=== PATIENT | male | born 1970 | race African-American/Black ===

== ENCOUNTER 2016-09-22 07:05 | Emergency (ER) | payer SELFPAY ==
[2016-09-22] MEDS ORDERED: Sodium Chloride 0.9% 2.5 ML Syringe FLUSH PRN (07:29)
[2016-09-22] MEDS ORDERED: Sodium Chloride 0.9% 10 ML Syringe FLUSH PRN (07:29)
--- NOTE | 2016-09-22 07:38 | EDM.PDOC ---
ED HPI GENERAL MEDICAL PROBLEM - General Chief Complaint: Genitourinary Problem Stated Complaint: PT CAN'T URINATE Time Seen by Provider: 09/22/16 07:15 - History of Present Illness INITIAL COMMENTS - FREE TEXT/NARRATIVE: HISTORY AND PHYSICAL: History of present illness: The patient is a 46-year-old male with no stated medical problems who presents with complaints of pressure with urination and difficulty initiating a stream that started last evening. According to the patient has had no issues with urination in the past and has no STD risks as he has only 1 partner and has not had sexual intercourse for over 3 weeks. He has no testicular pain or swelling no abdominal pain no nausea no vomiting no fever and no flank pain. Has no history of kidney stones. The patient states that yesterday he had urine output that was normal in color and had no issues with passing the urine during the day but then last evening started having dark colored urine which looked bloody to him and difficulty passing the urine and pressure with it. He says it doesn' t burn or hurt to pass the urine there is just pressure in his pelvis. He also states that he does not feel like there is urine trapped in his bladder that he cannot get out. He has no rectal pain and no bowel movement issues. He says he hydrates. The patient lives in [place] and is here working and does not have a provider at home or here. He has no history of trauma. Patient says he took Aleve last Sunday, 6 days ago, for a toothache which he normally doesn't take any was concerned that might have caused the problem. He also takes an herbal supplement for the last 6 days it was recommended to him by a coworker for his toothache but this again is a new medication for him. The patient states that he voided in the ER waiting area right before coming in and was able to produce a small sample for us of 10 mL of urine looked very dark colored. Review of systems: As per history of present illness and below otherwise all systems reviewed and negative. Past medical history: As per history of present illness and as reviewed below otherwise noncontributory. Surgical history: As per history of present illness and as reviewed below otherwise noncontributory. Social history: No reported history of drug or alcohol abuse. Family history: As per history of present illness and as reviewed below otherwise noncontributory. Physical exam: Gen.: Well-developed well-nourished male who is nontoxic and speaking clearly and moves in the ED without distress. Vital signs been noted by me. HEENT: Atraumatic, normocephalic, pupils reactive, negative for conjunctival pallor or scleral icterus, mucous membranes moist, throat clear, neck supple, nontender, trachea midline. Lungs: Clear to auscultation, breath sounds equal bilaterally, chest nontender. Heart: S1S2, regular and rhythm no overt murmurs Abdomen: Soft, nondistended, nontender. Negative for masses or hepatosplenomegaly. Negative for costovertebral tenderness. Pelvis: Stable nontender. Genitourinary: Normal male with descended testicles bilaterally no evidence of any masses or lesions no inguinal adenopathy Rectal: There is a small excoriated hemorrhoid seen and there is normal rectal tone. The prostate is not enlarged or boggy Extremities: Atraumatic, negative for cords or calf pain. Neurovascular unremarkable. Neuro: Awake, alert, oriented. Cranial nerves II through XII unremarkable. Cerebellum unremarkable. Motor and sensory unremarkable throughout. Exam nonfocal. Diagnostics: UA urine culture urine for gonorrhea and Chlamydia, bladder scan, CBC CMP CPK CT scan of the abdomen and pelvis As the patient voided in the ED waiting area as well as a small amount here in the ER for sample the bladder scan will be a post void residual Therapeutics: IV fluids Patient's post void residual on bladder scan was 412 mL 1032: Case was discussed with Dr. Quiñones ; he is going to review the CT scan and calm and discussed the plan with the patient. Patient is aware of this and is comfortable with this. He currently has been passing urine in the ED which is looking more bloody and less dark 1100: Dr Quiñones is here in the ED and will schedule the patient for cystoscopy on Sunday. Patient is aware that he needs to hydrate and that he is unable to pass urine that he should return to the ED. Impression: Hematuria likely bladder tumor Definitive disposition and diagnosis as appropriate pending reevaluation and review of above. - Related Data Allergies Allergy/AdvReac Type Severity Reaction Status Date / Time No Known Allergies Allergy Verified 09/22/16 07:17 Home Meds: Home Meds . [No Known Home Meds] 09/22/16 [History] Past Medical History - Past Health History Medical/Surgical History: Denies Medical/Surgical History Social & Family History - Family History Family Medical History: Noncontributory - Tobacco Use Smoking Status *Q: Never Smoker - Recreational Drug Use Recreational Drug Use: Yes Drug Use in Last 12 Months: Yes Recreational Drug Type: Reports: Marijuana/Hashish ED ROS GENERAL - Review of Systems Review Of Systems: ROS reveals no pertinent complaints other than HPI. ED EXAM, GENERAL - Physical Exam Exam: See Below (See dictation) Course - Vital Signs Last Recorded V/S: Last Vital Signs Temp 36.3 C 09/22/16 10:56 Pulse 92 09/22/16 10:56 Resp 16 09/22/16 10:56 BP 174/104 H 09/22/16 10:56 Pulse Ox 98 09/22/16 10:56 - Orders/Labs/Meds Orders: Active Orders 24 hr Category Date Time Status Abdomen Pelvis w wo Cont [CT] Stat Exams 09/22/16 08:27 Taken CHLAMYDIA TRACHOMATIS/GC AMPLF Stat Lab 09/22/16 07:25 Received CULTURE URINE [RM] Stat Lab 09/22/16 07:25 Received Sodium Chloride 0.9% [Saline Flush] Med 09/22/16 07:29 Active 10 ml FLUSH ASDIRECTED PRN Sodium Chloride 0.9% [Saline Flush] Med 09/22/16 07:29 Active 2.5 ml FLUSH ASDIRECTED PRN Saline Lock Insert [OM.PC] Stat Oth 09/22/16 07:33 Ordered Medication Orders Sodium Chloride (Saline Flush) 10 ml FLUSH ASDIRECTED PRN PRN Reason: Keep Vein Open Last Admin: 09/22/16 07:50 Dose: 10 ml Sodium Chloride (Saline Flush) 2.5 ml FLUSH ASDIRECTED PRN PRN Reason: Keep Vein Open Last Admin: 09/22/16 07:50 Dose: 2.5 ml Labs: Laboratory Tests 09/22/16 09/22/16 09/22/16 Range/Units 07:25 07:41 07:41 WBC 8.66 (4.0-11.0) K/uL RBC 5.66 (4.50-5.90) M/uL Hgb 16.9 (13.0-17.0) g/dL Hct 48.4 (38.0-50.0) % MCV 85.5 (80.0-98.0) fL MCH 29.9 (27.0-32.0) pg MCHC 34.9 (31.0-37.0) g/dL RDW Std Deviation 41.4 (28.0-62.0) fl RDW Coeff of Veena 13 (11.0-15.0) % Plt Count 246 (150-400) K/uL MPV 10.20 (7.40-12.00) fL Neut % (Auto) 75.5 (48.0-80.0) % Lymph % (Auto) 16.1 (16.0-40.0) % Payne % (Auto) 7.2 (0.0-15.0) % Eos % (Auto) 0.7 (0.0-7.0) % Baso % (Auto) 0.5 (0.0-1.5) % Neut # (Auto) 6.6 H (1.4-5.7) K/uL Lymph # (Auto) 1.4 (0.6-2.4) K/uL Payne # (Auto) 0.6 (0.0-0.8) K/uL Eos # (Auto) 0.1 (0.0-0.7) K/uL Baso # (Auto) 0.0 (0.0-0.1) K/uL Nucleated RBC % 0.0 /100WBC Nucleated RBCs # 0 K/uL Sodium 141 (136-146) mmol/L Potassium 3.9 (3.5-5.1) mmol/L Chloride 107 (98-110) mmol/L Carbon Dioxide 24 (21-31) mmol/L BUN 15 (6.0-23.0) mg/dL Creatinine 1.2 (0.6-1.5) mg/dL Est Cr Clr Drug Dosing 81.05 mL/min Estimated GFR (MDRD) > 60.0 ml/min Glucose 112 H (60-110) mg/dL Calcium 9.2 (8.8-10.8) mg/dL Total Bilirubin 0.9 (0.1-1.5) mg/dL AST 34 (5-40) IU/L ALT 40 (8-54) IU/L Alkaline Phosphatase 69 (40-150) Creatine Kinase (9-236) IU/L Total Protein 7.7 (6.0-8.0) g/dL Albumin 4.6 (3.5-5.0) g/dL Globulin 3.1 (2.0-3.5) g/dL Albumin/Globulin Ratio 1.5 (1.3-2.8) Urine Color RED Urine Appearance SLT CLOUDY Urine pH 6.0 (5.0-8.0) Ur Specific Villanova >= 1.030 (1.001-1.035) Urine Protein 100 (NEGATIVE) mg/dL Urine Glucose (UA) NEGATIVE (NEGATIVE) mg/dL Urine Ketones TRACE H (NEGATIVE) mg/dL Urine Occult Blood LARGE H (NEGATIVE) Urine Nitrite NEGATIVE (NEGATIVE) Urine Bilirubin SMALL H (NEGATIVE) Urine Ictotest Urine Urobilinogen 1.0 (<2.0) EU/dL Ur Leukocyte Esterase NEGATIVE (NEGATIVE) Urine RBC TOO NUMBEROUS TO CT (0-2/HPF) Urine WBC 0-1 (0-5/HPF) Ur Epithelial Cells RARE (NONE-FEW) Urine Bacteria RARE (NEGATIVE) 09/22/16 Range/Units 07:41 WBC (4.0-11.0) K/uL RBC (4.50-5.90) M/uL Hgb (13.0-17.0) g/dL Hct (38.0-50.0) % MCV (80.0-98.0) fL MCH (27.0-32.0) pg MCHC (31.0-37.0) g/dL RDW Std Deviation (28.0-62.0) fl RDW Coeff of Veena (11.0-15.0) % Plt Count (150-400) K/uL MPV (7.40-12.00) fL Neut % (Auto) (48.0-80.0) % Lymph % (Auto) (16.0-40.0) % Payne % (Auto) (0.0-15.0) % Eos % (Auto) (0.0-7.0) % Baso % (Auto) (0.0-1.5) % Neut # (Auto) (1.4-5.7) K/uL Lymph # (Auto) (0.6-2.4) K/uL Payne # (Auto) (0.0-0.8) K/uL Eos # (Auto) (0.0-0.7) K/uL Baso # (Auto) (0.0-0.1) K/uL Nucleated RBC % /100WBC Nucleated RBCs # K/uL Sodium (136-146) mmol/L Potassium (3.5-5.1) mmol/L Chloride (98-110) mmol/L Carbon Dioxide (21-31) mmol/L BUN (6.0-23.0) mg/dL Creatinine (0.6-1.5) mg/dL Est Cr Clr Drug Dosing mL/min Estimated GFR (MDRD) ml/min Glucose (60-110) mg/dL Calcium (8.8-10.8) mg/dL Total Bilirubin (0.1-1.5) mg/dL AST (5-40) IU/L ALT (8-54) IU/L Alkaline Phosphatase (40-150) Creatine Kinase 880 H (9-236) IU/L Total Protein (6.0-8.0) g/dL Albumin (3.5-5.0) g/dL Globulin (2.0-3.5) g/dL Albumin/Globulin Ratio (1.3-2.8) Urine Color Urine Appearance Urine pH (5.0-8.0) Ur Specific Villanova (1.001-1.035) Urine Protein (NEGATIVE) mg/dL Urine Glucose (UA) (NEGATIVE) mg/dL Urine Ketones (NEGATIVE) mg/dL Urine Occult Blood (NEGATIVE) Urine Nitrite (NEGATIVE) Urine Bilirubin (NEGATIVE) Urine Ictotest Urine Urobilinogen (<2.0) EU/dL Ur Leukocyte Esterase (NEGATIVE) Urine RBC (0-2/HPF) Urine WBC (0-5/HPF) Ur Epithelial Cells (NONE-FEW) Urine Bacteria (NEGATIVE) Meds: Medications Generic Name Dose Route Start Last Admin Trade Name Freq PRN Reason Stop Dose Admin Sodium Chloride 10 ml 09/22/16 07:29 09/22/16 07:50 Saline Flush FLUSH 10 ml ASDIRECTED PRN Administration Keep Vein Open Sodium Chloride 2.5 ml 09/22/16 07:29 09/22/16 07:50 Saline Flush FLUSH 2.5 ml ASDIRECTED PRN Administration Keep Vein Open Discontinued Medications Generic Name Dose Route Start Last Admin Trade Name Freq PRN Reason Stop Dose Admin Sodium Chloride 1,000 mls @ 999 mls/hr 09/22/16 07:45 09/22/16 07:50 Normal Saline IV 09/22/16 08:45 999 mls/hr STAT ONE Administration Iopamidol 100 ml 09/22/16 08:42 09/22/16 09:52 Isovue Multipack-370 (76%) IVPUSH 09/22/16 08:43 100 ml ONETIME STA Administration Departure - Departure Time of Disposition: 11:01 Disposition: Home, Self-Care 01 Condition: Good Clinical Impression: Hematuria, Bladder mass - Discharge Information Forms: ED Department Discharge Additional Instructions: The following information is given to patients seen in the emergency department who are being discharged to home. This information is to outline your options for follow-up care. We provide all patients seen in our emergency department with a follow-up referral. The need for follow-up, as well as the timing and circumstances, are variable depending upon the specifics of your emergency department visit. If you don't have a primary care physician on staff, we will provide you with a referral. We always advise you to contact your personal physician following an emergency department visit to inform them of the circumstance of the visit and for follow-up with them and/or the need for any referrals to a consulting specialist. The emergency department will also refer you to a specialist when appropriate. This referral assures that you have the opportunity for followup care with a specialist. All of these measure are taken in an effort to provide you with optimal care, which includes your followup. Under all circumstances we always encourage you to contact your private physician who remains a resource for coordinating your care. When calling for followup care, please make the office aware that this follow-up is from your recent emergency room visit. If for any reason you are refused follow-up, please contact the [facility] emergency department at and ask to speak to the emergency department charge nurse. [facility] Primary care- Internal Medicine and Family [facility] [address] [place] [id number] [facility] Specialty care-Neurology Professional Building [address] [place] [address], [address] [place] [address] Please follow instructions given to you today for your outpatient surgery on Sunday. Please push hydration as we discussed and return to ER if you have any urinary problems. Return to ER as needed and as discussed. - My Orders Last 24 Hours: My Active Orders 09/22/16 07:25 CHLAMYDIA TRACHOMATIS/GC AMPLF Stat CULTURE URINE [RM] Stat 09/22/16 07:29 Sodium Chloride 0.9% [Saline Flush] 10 ml FLUSH ASDIRECTED PRN Sodium Chloride 0.9% [Saline Flush] 2.5 ml FLUSH ASDIRECTED PRN 09/22/16 07:33 Saline Lock Insert [OM.PC] Stat 09/22/16 08:27 Abdomen Pelvis w wo Cont [CT] Stat - Assessment/Plan Last 24 Hours: My Active Orders 09/22/16 07:25 CHLAMYDIA TRACHOMATIS/GC AMPLF Stat CULTURE URINE [RM] Stat 09/22/16 07:29 Sodium Chloride 0.9% [Saline Flush] 10 ml FLUSH ASDIRECTED PRN Sodium Chloride 0.9% [Saline Flush] 2.5 ml FLUSH ASDIRECTED PRN 09/22/16 07:33 Saline Lock Insert [OM.PC] Stat 09/22/16 08:27 Abdomen Pelvis w wo Cont [CT] Stat
[2016-09-22] MEDS ORDERED: Sodium Chloride 0.9% 1,000 ML IV ONE (07:45)
[2016-09-22 08:16] LABS: CHLORIDE,CL 107 mmol/L (98-110); SODIUM,NA 141 mmol/L (136-146)
[2016-09-22] MEDS ORDERED: Iopamidol 755 MG/ML 500 ML Multipack Bottle IVPUSH STA (08:42)
[2016-09-22 10:57] VITALS: BP 174/104
--- NOTE | 2016-09-22 16:54 | CT ---
EXAM DATE: 09/22/16 PATIENT'S AGE: 46 Patient: SARAH SHARP Facility: [place], [place] Site . Site : 1970 Study: CT Abdomen/Pelvis [id number]/23/2017 9:49:15 AM Ordering Physician: Feroz Kraft Final Report: Indication: Gross hematuria. Technique: A CT volumetric acquisition was performed of the abdomen and pelvis prior to, during and following intravenous infusion of 100 cc of Isovue-370 nonionic intravenous contrast. Findings: The pre contrast images demonstrate a normal appearance of the lung bases. There is no evidence of pleural or pericardial fluid. There are no radiopaque calculi identified within either kidney or ureter and there is no evidence of hydronephrosis. There is a 3.5 x 2.2 cm hyperdense soft tissue process within the posterior bladder lumen suggesting a hematoma. The contrast-enhanced images demonstrate a normal appearance of the liver, spleen and pancreas. The gallbladder and bile ducts are normal size. The adrenal glands have normal morphology. There is normal symmetric uniform cortical medullary enhancement within both kidneys. The abdominal aorta appears normal and there is no evidence of retroperitoneal lymphadenopathy. The appendix is visualized in a retrocecal location appears normal. There is normal appearance of the small intestine. There is no evidence of diverticulitis. The hyperdense process within the posterior bladder lumen shows no evidence of enhancement and no additional bladder abnormalities are identified. 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 There are no suspicious filling defects or obstructive changes identified within either collecting system. The posterior bladder mass results in a defect within the contrast opacified bladder. Impression: Probable blood clot within the posterior bladder lumen. Recommend correlation with cystoscopy. No abnormalities identified within either kidney or ureter. Please note that all CT scans at this facility use dose modulation, iterative reconstruction, and/or weight-based dosing when appropriate to reduce radiation dose to as low as reasonably achievable. Dictated by Chavez Armijo MD @ Sep 22 2016 10:19AM (Electronic Signature) Report Signed by Proxy. [facility] HEALTHChinedu
== END 2016-09-22 11:13 | disposition home or self-care (01) ==
LOC: MW.ED 07:05
DX: R31.9 Hematuria, unspecified (principal); N32.89 Other specified disorders of bladder
CPT/HCPCS: 36415; 74178; 80053; 81001; 82550; 85025; 87086; 87491; 87591; 96360; 99284; J7040; Q9967; 99283

== ENCOUNTER 2016-09-26 09:57 | Day surgery (SDC) | payer SELFPAY ==
[2016-09-26] MEDS ORDERED: Lidocaine 2% 5 ML SDV ONE (11:19)
[2016-09-26] MEDS ORDERED: fentaNYL 100 MCG/2 ML SDV ONE ×2 (11:20→13:03)
[2016-09-26] MEDS ORDERED: Midazolam 1 MG/ML 2 ML SDV ONE (11:20)
[2016-09-26] MEDS ORDERED: Propofol 200 MG/20 ML SDV ONE (11:20)
[2016-09-26] MEDS ORDERED: fentaNYL 100 MCG/2 ML SDV IVPUSH PRN (11:27)
--- NOTE | 2016-09-26 11:46 | PCM.PREANE ---
Preanesthetic Assessment - Procedure Proposed Procedure: TURBT - Anesthesia/Transfusion/Family Hx Anesthesia History: No Prior Anesthesia Family History of Anesthesia Reaction: No Transfusion History: No Prior Transfusion(s) Intubation History: Unknown - Review of Systems General: No Symptoms Pulmonary: No Symptoms Cardiovascular: No Symptoms Gastrointestinal: No symptoms Neurological: No Symptoms Other: Reports: Anxiety - Physical Assessment NPO Status Date: 09/25/16 NPO Status Time: 23:00 O2 Sat by Pulse Oximetry: 97 Respiratory Rate: 20 Vital Signs: Last Vital Signs Temp 99.0 F 09/26/16 10:15 Pulse 120 H 09/26/16 10:15 Resp 20 09/26/16 10:15 BP 143/89 H 09/26/16 10:15 Pulse Ox 97 09/26/16 10:15 Height: 5 ft 11 in Weight: 211 lb 10.3 oz ASA Class: 1 Mental Status: Alert & Oriented x3 Airway Class: Mallampati = 1 Dentition: Reports: Normal Dentition Thyro-Mental Finger Breadths: 3 (Full lomas) Mouth Opening Finger Breadths: 3 ROM/Head Extension: Full Lungs: Clear to auscultation, Normal respiratory effort Cardiovascular: Regular Rate, Regular Rhythm, No Murmurs - Allergies Allergies/Adverse Reactions: Allergies Allergy/AdvReac Type Severity Reaction Status Date / Time No Known Allergies Allergy Verified 09/22/16 07:17 - Blood Blood Available: No Product(s) Available: None - Anesthesia Plan Pre-Op Medication Ordered: None - Acknowledgements Anesthesia Type Planned: General Anesthesia (LMA) Pt an Appropriate Candidate for the Planned Anesthesia: Yes Alternatives and Risks of Anesthesia Discussed w Pt/Guardian: Yes Pt/Guardian Understands and Agrees with Anesthesia Plan: Yes PreAnesthesia Questionnaire - Past Health History Medical/Surgical History: Denies Medical/Surgical History Gastrointestinal History: Reports: Other (See Below) Other Gastrointestinal History: heartburn if I eat somthing spicy - Past Surgical History Head Surgeries/Procedures: Reports: None - SUBSTANCE USE Smoking Status *Q: Never Smoker Days Per Week of Alcohol Use: 1 Recreational Drug Use History: Yes Recreational Drug Type: Reports: Marijuana/Hashish - HOME MEDS Home Medications: Home Meds . [No Known Home Meds] 09/22/16 [History] - CURRENT (IN HOUSE) MEDS Current Meds: Current Medications Fentanyl (Sublimaze) 50 - 100 mcg IVPUSH Q5M PRN PRN Reason: Pain Stop: 09/26/16 14:27 Discontinued Medications Fentanyl (Sublimaze) Confirm Administered Dose 100 mcg .ROUTE .STK-MED ONE Stop: 09/26/16 11:21 Glycopyrrolate () Confirm Administered Dose 1 mg .ROUTE .STK-MED ONE Stop: 09/26/16 11:37 Lidocaine (Xylocaine-Mpf 2%) Confirm Administered Dose 5 ml .ROUTE .STK-MED ONE Stop: 09/26/16 11:20 Midazolam HCl (Versed 1 Mg/Ml) Confirm Administered Dose 2 mg .ROUTE .STK-MED ONE Stop: 09/26/16 11:21 Propofol (Diprivan 20 Ml) Confirm Administered Dose 200 mg .ROUTE .STK-MED ONE Stop: 09/26/16 11:21
[2016-09-26] MEDS ORDERED: Ketorolac 30 MG/ML SDV ONE ×2 (12:05→13:05)
[2016-09-26] MEDS ORDERED: Ondansetron 4 MG/2 ML SDV ONE ×2 (12:05→13:05)
[2016-09-26] MEDS ORDERED: Lactated Ringers 1,000 ML IV SCH (12:15)
[2016-09-26] MEDS ORDERED: ceFAZolin 2 GM in Premix Bag 1 BAG IV ONE (12:59)
[2016-09-26 15:04] VITALS: BP 136/74
--- NOTE | 2016-09-26 16:13 | PCM.POSTAN ---
POST ANESTHESIA ASSESSMENT - MENTAL STATUS Mental Status: alert, oriented - RESPIRATORY Respiratory Status: respiratory rate WNL, airway patent, O2 saturation stable - CARDIOVASCULAR CV Status: pulse rate WNL, blood pressure stable - GASTROINTESTINAL GI Status: no symptoms - PAIN Pain Score: 0 - POST OP HYDRATION Hydration Status: adequate & stable
--- NOTE | 2016-09-26 16:13 | PCM48HPAN ---
Post Anesthesia Note - EVALUATION WITHIN 48HRS OF ANESTHETIC Vital Signs in Normal Range: Yes Patient Participated in Evaluation: Yes Respiratory Function Stable: Yes Airway Patent: Yes Cardiovascular Function Stable: Yes Hydration Status Stable: Yes Pain Control Satisfactory: Yes Nausea and Vomiting Control Satisfactory: Yes Mental Status Recovered: Yes
--- NOTE | 2016-09-27 06:08 | OR ---
SURGEON: Bonnie Quiñones M.D. DATE OF PROCEDURE: 09/26/2016 PREOPERATIVE DIAGNOSIS: Bladder tumor. POSTOPERATIVE DIAGNOSIS: Normal cystoscopy. DESCRIPTION OF PROCEDURE: The patient is given general anesthesia, placed in dorsal lithotomy position, prepped and draped in sterile drapes. The resectoscope was introduced in the bladder without difficulty. Visualization of the entire bladder showed no tumors. This filling defect that was seen on the CT scan would have been a blood clot. With that done, the procedure was terminated. The bladder was emptied, and the patient was moved to recovery room in good condition. MARY / OLIVIA /[id number]
== END 2016-09-26 15:09 ==
LOC: MW.SDS 09:57
PROVIDERS: ATTEND Urology
DX: R31.0 Gross hematuria (principal); F12.90 Cannabis use, unspecified, uncomplicated
CPT/HCPCS: 52000; J0690; J1885; J2250; J2405; J3010; J7120; 00910; J2704